=== PATIENT | female | born 1970 | race Caucasian/White ===

== ENCOUNTER 2018-02-12 23:02 | Emergency (ER) | payer BC ==
[~2018-02-12] VITALS: Ht 162.6 cm; Wt 89.8 kg
[~2018-02-12 23:02] MED LIST: ALBUTEROL2.5 MG/0.1 INH; BENADRYL25 MG PO; BREO ELLIPTA 11 EACH IH; HYDROCODONE-AP1 EAC6 PO; MUCINEX COLD-F177 ML PO; ONDANSETRON HCL4 M2 PO; ZYRTEC10 M5 PO
[2018-02-12 23:06] VITALS: BP 128/76
[2018-02-12] MEDS ORDERED: TRIAMCINOLONE A80 G2 TOP (23:18)
[2018-02-12] MEDS ORDERED: DELTASONE20 MG PO (23:18)
== END 2018-02-12 23:32 | disposition home or self-care (01) ==
LOC: M.ERS 23:02
DX: L53.9 Erythematous condition, unspecified (principal); T78.40XA Allergy, unspecified, initial encounter; G89.29 Other chronic pain; M54.9 Dorsalgia, unspecified; Z88.0 Allergy status to penicillin; Z88.1 Allergy status to other antibiotic agents; X58.XXXA Exposure to other specified factors, initial encounter

== ENCOUNTER 2018-04-26 15:19 | Emergency (ER) | payer OTHER, BC ==
[~2018-04-26] VITALS: Ht 165.1 cm; Wt 72.6 kg
[~2018-04-26 15:19] MED LIST changes: +DELTASONE20 MG PO; +TRIAMCINOLONE A80 G2 TOP
[2018-04-26 15:34] LABS: URINE BILIRUBIN NEGATIVE (Negative); URINE BLOOD NEGATIVE (Negative); URINE GLUCOSE-RANDOM TRACE (Negative); URINE KETONES NEGATIVE (Negative); URINE LEUKOCYTES NEGATIVE (Negative); URINE NITRITE POSITIVE (Negative); URINE PROTEIN TRACE (Negative)
[2018-04-26 15:35] LABS: URINE CLARITY HAZY; URINE COLOR DARK YELLOW
[2018-04-26] MEDS ORDERED: FLONASE 0.05%50 MCG NASAL (15:35)
[2018-04-26 15:40] LABS: SQUAMOUS 0-3 Few /LPF (0-3)
[2018-04-26 15:41] LABS: BACTERIA None Seen /HPF (None Seen); CASTS None Seen /LPF (None Seen); CRYSTALS None Seen /LPF (None Seen); URINE RBC None Seen /HPF (0-2); URINE WBC 0-5 Rare /HPF (0-5)
[2018-04-26 16:16] LABS: ABSOLUTE EOSINOPHILS 0.1 thou/uL (0.0-0.7); ABSOLUTE LYMPHOCYTES 2.6 thou/uL (0.8-5.3); ABSOLUTE MONOCYTES 0.6 thou/uL (0.0-1.2); ABSOLUTE NEUTROPHILS 3.7 thou/uL (1.6-8.1); BASOPHILS 0.6 %; EOSINOPHILS 1.2 %; HEMOGLOBIN 13.7 gm/dL (12.0-15.0); LYMPHOCYTES 37.3 %; MCH 29.9 pg (26.0-34.0); MCHC 34.2 g/dL (28.0-37.0); MCV 87.5 fL (80.0-100.0); MONOCYTES 8.5 %; MPV 9.3 fl. (7.2-11.1); NUCLEATED RBCS 0 /100WBC; PLATELET COUNT* 228 thou/uL (150-400); POLYS 52.4 %; RBC 4.57 mil/uL (4.20-5.00)
[2018-04-26 16:21] LABS: CALCIUM 8.5 mg/dL (8.5-10.1); CREATININE 0.7 mg/dL (0.6-1.3); POTASSIUM 3.9 mmol/L (3.5-5.1)
[2018-04-26 16:25] LABS: ALBUMIN 3.6 g/dL (3.4-5.0); TOTAL BILIRUBIN 0.5 mg/dL (<0.1-1.0); TOTAL PROTEIN 7.4 g/dL (6.4-8.2)
[2018-04-26] MEDS ORDERED: ONDANSETRON HCL4 M2 PO (16:59)
[2018-04-26] MEDS ORDERED: CARAFATE1 GM/10 ML PO (16:59)
[2018-04-26] MEDS ORDERED: CIPRO500 MG PO (16:59)
[2018-04-26] MEDS ORDERED: PROTONIX40 M1 PO (16:59)
[2018-04-26 17:14] VITALS: BP 123/74
== END 2018-04-26 17:15 | disposition home or self-care (01) ==
LOC: M.ERS 15:19
PROVIDERS: Nurse Practitioner Family
DX: N39.0 Urinary tract infection, site not specified (principal); R10.13 Epigastric pain; G89.29 Other chronic pain; M54.9 Dorsalgia, unspecified; Z88.0 Allergy status to penicillin; Z88.1 Allergy status to other antibiotic agents

== ENCOUNTER 2019-01-29 00:22 | Emergency (ER) | payer OTHER ==
[~2019-01-29] VITALS: Ht 165.1 cm; Wt 93.0 kg
[~2019-01-29 00:22] MED LIST changes: +CARAFATE1 GM/10 ML PO; +CIPRO500 MG PO; +FLONASE 0.05%50 MCG NASAL; +PROTONIX40 M1 PO
[2019-01-29] MEDS ORDERED: MEDROL DOSPAK21 TA1 PO (00:46)
[2019-01-29] MEDS ORDERED: FLEXERIL PO (00:46)
[2019-01-29] MEDS ORDERED: ULTRAM 50MG TAB50 MG PO (00:46)
[2019-01-29] MEDS ORDERED: CLOBETASOL PROP15 G1 TOP (00:47)
[2019-01-29] MEDS ORDERED: NIZORAL120 ML TOP (00:47)
[2019-01-29] MEDS ORDERED: PROAIR RESPICL90 MCG INH (00:48)
[2019-01-29] MEDS ORDERED: FLONASE 0.05%50 MCG NASAL (00:48)
[2019-01-29 01:32] LABS: ACETEST (KETONE CONFIRMATORY) Negative (Negative); ICTOTEST (BILI CONFIRMATORY) Negative (Negative); URINE CLARITY CLEAR; URINE COLOR YELLOW; URINE PROTEIN NEGATIVE (Negative); URINE REDUCING SUBSTANCE NEGATIVE (Negative)
[2019-01-29 01:33] LABS: URINE LEUKOCYTES-REFLEX TRACE (Negative); URINE NITRITE-REFLEX NEGATIVE (Negative); URINE UROBILINOGEN 0.2 E.U./dl (0.2-1.0)
[2019-01-29] MEDS ORDERED: NORCO 5-325 TA1 EAC1 PO (01:34)
[2019-01-29] MEDS ORDERED: KEFLEX500 M1 PO (01:34)
[2019-01-29 01:46] LABS: URINE BILIRUBIN NEGATIVE (Negative); URINE BLOOD NEGATIVE (Negative); URINE GLUCOSE-RANDOM NEGATIVE (Negative); URINE KETONES NEGATIVE (Negative)
[2019-01-29 01:47] LABS: CASTS None Seen /LPF (None Seen); CRYSTALS None Seen /LPF (None Seen); MUCUS 0-3 Light strn/LPF (None Seen); SQUAMOUS 0-3 Few /LPF (0-3); URINE RBC None Seen /HPF (0-2); URINE WBC-REFLEX 6-15 Few /HPF (0-5)
[2019-01-29 01:57] VITALS: BP 153/93
[2019-02-02] MEDS ORDERED: KEFLEX500 M1 PO (22:41)
== END 2019-01-29 01:57 | disposition home or self-care (01) ==
LOC: M.ERS 00:22
PROVIDERS: Emergency Medicine Emergency Medical Services
DX: N39.0 Urinary tract infection, site not specified (principal); M54.31 Sciatica, right side; R20.2 Paresthesia of skin; G89.29 Other chronic pain; Z88.0 Allergy status to penicillin; Z88.1 Allergy status to other antibiotic agents

== ENCOUNTER → 2021-03-05 | Outpatient (CLI) | payer OTHER ==
[~2021-03-05] MED LIST changes: +CIPRO500 M1 PO; +CLOBETASOL PROP15 G1 TOP; +FLAGYL500 M1 PO; +FLEXERIL PO; +KEFLEX500 M1 PO; +MEDROL DOSPAK21 TA1 PO; +NIZORAL120 ML TOP; +NORCO 5-325 TA1 EAC1 PO; +NYSTATIN100000 UNI SW&SWALLOW; +PROAIR RESPICL90 MCG INH; +ULTRAM 50MG TAB50 MG PO; +WIXELA 250-501 EACH
== END ==
LOC: M.LAB 15:39
PROVIDERS: ATTEND Internal Medicine Gastroenterology
DX: Z01.812 Encounter for preprocedural laboratory examination (principal); Z20.822 Contact with and (suspected) exposure to COVID-19

== ENCOUNTER → 2021-03-12 | Outpatient (CLI) | payer OTHER ==
[2021-03-12 14:14] LABS: ABSOLUTE BASOPHILS 0.1 thou/uL (0.0-0.2); ABSOLUTE LYMPHOCYTES 2.1 thou/uL (0.8-5.3); ABSOLUTE MONOCYTES 0.4 thou/uL (0.0-1.2); ABSOLUTE NEUTROPHILS 6.8 thou/uL (1.6-8.1); BASOPHILS 0.5 %; EOSINOPHILS 0.3 %; HEMATOCRIT 42.1 % (37.0-47.0); HEMOGLOBIN 13.9 gm/dL (12.0-15.0); LYMPHOCYTES 22.2 %; MCH 28.8 pg (26.0-34.0); MCV 87.2 fL (80.0-100.0); MONOCYTES 4.6 %; MPV 8.3 fl. (7.2-11.1); NUCLEATED RBCS 0 /100WBC; PLATELET COUNT* 268 thou/uL (150-400); POLYS 72.4 %; RBC 4.83 mil/uL (4.20-5.00); RDW-CV 13.9 % (10.5-14.5); WBC 9.3 thou/uL (4.0-11.0)
[2021-03-12 14:26] LABS: ALBUMIN 3.9 g/dL (3.4-5.0); CALCIUM 9.4 mg/dL (8.5-10.1); CREATININE 0.9 mg/dL (0.6-1.3); POTASSIUM 4.1 mmol/L (3.5-5.1); TOTAL BILIRUBIN 0.4 mg/dL (<0.1-1.0); TOTAL PROTEIN 7.8 g/dL (6.4-8.2)
[2021-03-12 15:34] LABS: ESR (SEDRATE) 25 mm/hr (0-20)
== END ==
LOC: M.LAB 13:57
PROVIDERS: ATTEND Internal Medicine Gastroenterology
DX: R14.0 Abdominal distension (gaseous) (principal); R10.9 Unspecified abdominal pain

== ENCOUNTER 2021-04-05 10:37 | Emergency (ER) | payer OTHER ==
[~2021-04-05] VITALS: Ht 165.1 cm; Wt 88.0 kg
[2021-04-05 11:06] LABS: URINE BILIRUBIN NEGATIVE (Negative); URINE BLOOD 2+ (Negative); URINE CLARITY CLEAR; URINE COLOR YELLOW; URINE GLUCOSE-RANDOM NEGATIVE (Negative); URINE KETONES 1+ (Negative); URINE LEUKOCYTES-REFLEX 1+ (Negative); URINE NITRITE-REFLEX NEGATIVE (Negative); URINE PROTEIN NEGATIVE (Negative); URINE SPECIFIC GRAVITY 1.015 (1.005-1.030); URINE UROBILINOGEN 0.2 E.U./dl (0.2-1.0)
[2021-04-05 11:14] LABS: ABSOLUTE BASOPHILS 0.1 thou/uL (0.0-0.2); ABSOLUTE EOSINOPHILS 0.1 thou/uL (0.0-0.7); ABSOLUTE LYMPHOCYTES 2.3 thou/uL (0.8-5.3); ABSOLUTE MONOCYTES 0.5 thou/uL (0.0-1.2); ABSOLUTE NEUTROPHILS 2.9 thou/uL (1.6-8.1); BASOPHILS 0.9 %; EOSINOPHILS 1.2 %; HEMATOCRIT 40.7 % (37.0-47.0); HEMOGLOBIN 13.7 gm/dL (12.0-15.0); MCH 29.2 pg (26.0-34.0); MCHC 33.8 g/dL (28.0-37.0); MCV 86.5 fL (80.0-100.0); MONOCYTES 8.9 %; MPV 8.2 fl. (7.2-11.1); NUCLEATED RBCS 0 /100WBC; PLATELET COUNT* 262 thou/uL (150-400); RDW-CV 13.4 % (10.5-14.5); WBC 5.9 thou/uL (4.0-11.0)
[2021-04-05 11:24] LABS: BACTERIA-REFLEX 1-9 Few /HPF (None Seen); CASTS None Seen /LPF (None Seen); CRYSTALS None Seen /LPF (None Seen); MUCUS 0-3 Light strn/LPF (None Seen); SQUAMOUS 0-3 Few /LPF (0-3); URINE RBC 3-10 Few /HPF (0-2); URINE WBC-REFLEX 0-5 Rare /HPF (0-5)
[2021-04-05 11:31] LABS: CALCIUM 9.7 mg/dL (8.5-10.1); CREATININE 0.8 mg/dL (0.6-1.3); POTASSIUM 4.4 mmol/L (3.5-5.1)
[2021-04-05 11:36] LABS: ALBUMIN 3.7 g/dL (3.4-5.0); TOTAL BILIRUBIN 0.8 mg/dL (<0.1-1.0); TOTAL PROTEIN 7.9 g/dL (6.4-8.2)
[2021-04-05] MEDS ORDERED: BACTRIM DS TAB1 EACH PO (12:51)
[2021-04-05] MEDS ORDERED: FLAGYL500 M1 PO (12:51)
[2021-04-05] MEDS ORDERED: ZOFRAN ODT4 MG PO (12:51)
[2021-04-05 13:08] VITALS: BP 145/95
== END 2021-04-05 13:08 | disposition home or self-care (01) ==
LOC: M.ERS 10:37
PROVIDERS: Nurse Practitioner Family
DX: K57.32 Diverticulitis of large intestine without perforation or abscess without bleeding (principal); J45.909 Unspecified asthma, uncomplicated; Z79.899 Other long term (current) drug therapy; Z88.1 Allergy status to other antibiotic agents; Z88.8 Allergy status to other drugs, medicaments and biological substances; Z88.0 Allergy status to penicillin

== ENCOUNTER → 2021-04-24 | Outpatient (CLI) | payer OTHER ==
[~2021-04-24] MED LIST changes: +BACTRIM DS TAB1 EACH PO; +ZOFRAN ODT4 MG PO
== END ==
LOC: M.ULTRA 10:30
PROVIDERS: ATTEND Nurse Practitioner Family
DX: E04.9 Nontoxic goiter, unspecified (principal)

== ENCOUNTER 2021-08-07 12:37 | Inpatient (IN) | payer OTHER ==
[~2021-08-07] VITALS: Ht 165.1 cm; Wt 75.7 kg
--- NOTE | ~2021-08-07 | H ---
[address] [address] HISTORY AND PHYSICAL Name: JACOB CAPPS Room: [address] M.R.#: [id number] Admission: 08/07/21 Attend Phys: Liv Lugo DO Discharge: 08/10/21 Date of : 72 Report #: [id number] THIS REPORT FOR: cc: Madelyn Trivedi Samantha RNP [facility],Medical Records Staff ~ For History and Physical please refer to the consultation note in the patient's medical record. By: [id number] Records Staff [facility] /[place]ARCIE
[2021-08-07 12:41] VITALS: BP 138/105
[2021-08-07] MEDS ORDERED: NEURONTIN100 MG PO (12:48)
[2021-08-07] MEDS ORDERED: IMODIUM A-D2 MG PO (12:49)
--- NOTE | 2021-08-07 16:27 | EKG ---
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 08/07/21 1627 1528 1528 Raul Ahmadi MD, [facility] /EPI
[2021-08-07 17:03] LABS: ABSOLUTE LYMPHOCYTES 1.4 thou/uL (0.8-5.3); ABSOLUTE MONOCYTES 0.5 thou/uL (0.0-1.2); ABSOLUTE NEUTROPHILS 8.7 thou/uL (1.6-8.1); BASOPHILS 0.2 %; EOSINOPHILS 0.2 %; HEMATOCRIT 40.6 % (37.0-47.0); HEMOGLOBIN 13.8 gm/dL (12.0-15.0); MCH 29.3 pg (26.0-34.0); MCHC 33.9 g/dL (28.0-37.0); MCV 86.5 fL (80.0-100.0); MONOCYTES 4.8 %; MPV 7.2 fl. (7.2-11.1); NUCLEATED RBCS 0 /100WBC; PLATELET COUNT* 247 thou/uL (150-400); POLYS 81.8 %; RBC 4.69 mil/uL (4.20-5.00); RDW-CV 14.1 % (10.5-14.5); WBC 10.7 thou/uL (4.0-11.0)
[2021-08-07 17:17] LABS: ALBUMIN 3.4 g/dL (3.4-5.0); CALCIUM 9.5 mg/dL (8.5-10.1); CREATININE 0.9 mg/dL (0.6-1.3); POTASSIUM 4.3 mmol/L (3.5-5.1); TOTAL BILIRUBIN 0.7 mg/dL (<0.1-1.0); TOTAL PROTEIN 7.9 g/dL (6.4-8.2)
[2021-08-07 18:00] VITALS: BP 117/76
[2021-08-07 23:47] VITALS: BP 115/76
[2021-08-07] MEDS ORDERED: PEPCID20 MG PO (23:54)
[2021-08-07] MEDS ORDERED: TYLENOL325 M1 PO (23:55)
[2021-08-07] MEDS ORDERED: IBUPROFEN 400400 M1 PO (23:55)
[2021-08-08] VITALS (14 sets, daily range): BP systolic 98–127; BP diastolic 53–84
[2021-08-08 03:22] LABS: ABSOLUTE EOSINOPHILS 0.1 thou/uL (0.0-0.7); ABSOLUTE LYMPHOCYTES 1.9 thou/uL (0.8-5.3); ABSOLUTE MONOCYTES 0.6 thou/uL (0.0-1.2); ABSOLUTE NEUTROPHILS 5.1 thou/uL (1.6-8.1); BASOPHILS 0.3 %; EOSINOPHILS 0.8 %; HEMATOCRIT 37.3 % (37.0-47.0); HEMOGLOBIN 12.5 gm/dL (12.0-15.0); LYMPHOCYTES 25.3 %; MCH 29.1 pg (26.0-34.0); MCHC 33.6 g/dL (28.0-37.0); MCV 86.6 fL (80.0-100.0); MONOCYTES 8.1 %; MPV 7.7 fl. (7.2-11.1); NUCLEATED RBCS 0 /100WBC; PLATELET COUNT* 247 thou/uL (150-400); POLYS 65.5 %; RDW-CV 14.1 % (10.5-14.5); WBC 7.7 thou/uL (4.0-11.0)
[2021-08-08 03:39] LABS: MAGNESIUM 1.5 mg/dL (1.8-2.4); PHOSPHORUS* 3.9 mg/dL (2.5-4.9)
[2021-08-08 04:23] LABS: ALBUMIN 3.1 g/dL (3.4-5.0); CREATININE 0.9 mg/dL (0.6-1.3); POTASSIUM 4.2 mmol/L (3.5-5.1); TOTAL BILIRUBIN 0.8 mg/dL (<0.1-1.0); TOTAL PROTEIN 6.5 g/dL (6.4-8.2)
--- NOTE | 2021-08-08 16:30 | NUR ---
PATIENT ADMITTED TO [facility] FROM ER, VIA BED ACCOMPANIED BY ER NURSE, DUE TO ABDOMINAL PAIN, N/V. OSTOMY IN PLACE TO LEFT RIGHT LOWER ABDOMEN WITHOUT COMPLICATIONS. PATIENT DOES ALL CARES FOR OSTOMY. IV TO LEFT AC INFUSING NORMAL SALINE AT 100MLS/HR WITHOUT COMPLICATIONS. ORIENTED TO ROOM AND FLOOR. ALL QUESTIONS AND CONCERNS ADDRESSED.
--- NOTE | 2021-08-08 19:30 | NUR ---
IV FLUIDS INFUSING PER ORDER. PATIENT ANXIOUS. PATIENT CONCERNED COLOSTOMY IS LEAKING AND PICKS AT THE SEAL AROUND THE STOMA. CURRENTLY SEAL AROUND THE STOMA IS DRY/INTACT. PATIENT HAVING TO MAKE FREQUENT TRIPS TO THE BATHROOM TO EMPTY COLOSTOMY DUE CONSTANT LIQUID YELLOWISH BROWN LIQUID STOOL.
[2021-08-09 04:39] LABS: ABSOLUTE EOSINOPHILS 0.1 thou/uL (0.0-0.7); ABSOLUTE LYMPHOCYTES 2.2 thou/uL (0.8-5.3); ABSOLUTE MONOCYTES 0.7 thou/uL (0.0-1.2); ABSOLUTE NEUTROPHILS 3.2 thou/uL (1.6-8.1); BASOPHILS 0.6 %; EOSINOPHILS 2.1 %; HEMATOCRIT 35.7 % (37.0-47.0); HEMOGLOBIN 11.9 gm/dL (12.0-15.0); LYMPHOCYTES 35.2 %; MCH 29.4 pg (26.0-34.0); MCHC 33.4 g/dL (28.0-37.0); MCV 88.1 fL (80.0-100.0); MONOCYTES 11.3 %; MPV 7.5 fl. (7.2-11.1); NUCLEATED RBCS 0 /100WBC; PLATELET COUNT* 226 thou/uL (150-400); POLYS 50.8 %; RBC 4.05 mil/uL (4.20-5.00); WBC 6.3 thou/uL (4.0-11.0)
[2021-08-09 05:24] LABS: CALCIUM 9.2 mg/dL (8.5-10.1); CREATININE 0.7 mg/dL (0.6-1.3); POTASSIUM 3.6 mmol/L (3.5-5.1); TOTAL BILIRUBIN 0.5 mg/dL (<0.1-1.0); TOTAL PROTEIN 6.8 g/dL (6.4-8.2)
--- NOTE | 2021-08-09 05:30 | NUR ---
OUTPUT IN COLOSTOMY SLOWED DOWN SOME. PATIENT ON SCHEDULED IMMODIUM. PATIENT WAS ABLE TO REST SOME ON/OFF. NO FURTHER COMPLAINT OF NAUSEA. HOURLY ROUNDING IN PROGRESS.
[2021-08-09 07:57] VITALS: BP 112/58
[2021-08-09 12:07] LABS: ABSOLUTE EOSINOPHILS 0.1 thou/uL (0.0-0.7); ABSOLUTE LYMPHOCYTES 2.2 thou/uL (0.8-5.3); ABSOLUTE MONOCYTES 0.7 thou/uL (0.0-1.2); BASOPHILS 0.5 %; EOSINOPHILS 1.1 %; HEMATOCRIT 38.8 % (37.0-47.0); HEMOGLOBIN 12.9 gm/dL (12.0-15.0); LYMPHOCYTES 31.7 %; MCH 28.9 pg (26.0-34.0); MCHC 33.2 g/dL (28.0-37.0); MCV 86.9 fL (80.0-100.0); MONOCYTES 9.8 %; MPV 7.5 fl. (7.2-11.1); NUCLEATED RBCS 0 /100WBC; PLATELET COUNT* 235 thou/uL (150-400); POLYS 56.9 %; RBC 4.46 mil/uL (4.20-5.00); RDW-CV 14.2 % (10.5-14.5)
[2021-08-09 12:19] LABS: ALBUMIN 3.1 g/dL (3.4-5.0); CALCIUM 9.1 mg/dL (8.5-10.1); CREATININE 0.8 mg/dL (0.6-1.3); TOTAL BILIRUBIN 0.4 mg/dL (<0.1-1.0); TOTAL PROTEIN 7.3 g/dL (6.4-8.2)
[2021-08-09 15:31] VITALS: BP 109/67
--- NOTE | 2021-08-09 17:05 | NUR ---
PT IS UP AT [facility]. PT IS ON RM . PT HAS IV IN RT HAND. PT HAS ILLEOSTOMY.PT HAD PAIN THIS AM , RESOLVED WITH TYN. PT HAD NAUSEA RESOLVED WITH ZOFRAN. PT HAD CT THIS SHIFT . PT IS A&O X4 . PT IS SITTING IN BED WATCHING TV. CALL LIGHT IN REACH.
[2021-08-09 21:00] VITALS: BP 126/77
[2021-08-10] VITALS: BP 107/69
--- NOTE | 2021-08-10 05:11 | NUR ---
ASSUMED CARES AT 1920. ALERT AND ORIENTED. PLEASANT. UP AD ASHLEY. C/O SLIGHT NAUSEA AND ABD DISCOMFORT. SCHEDULED TYLENOL GIVEN. ZOFRAN GIVEN. SALINE LOCK RIGHT HAND. PT EMPTIES OWN ILEOSTOMY BAG. PT REPORTS STOOLS ARE LESS WATERY AND NOT YELLOW. NO ISSUES OVERNIGHT.
[2021-08-10 05:45] LABS: HEMOGLOBIN 12.9 gm/dL (12.0-15.0); MCH 29.4 pg (26.0-34.0); MCV 84.2 fL (80.0-100.0); MPV 7.6 fl. (7.2-11.1); RBC 4.4 mil/uL (4.20-5.00); RDW-CV 14.2 % (10.5-14.5); WBC 8.2 thou/uL (4.0-11.0)
[2021-08-10 07:00] LABS: ALBUMIN 3.1 g/dL (3.4-5.0); CALCIUM 9.5 mg/dL (8.5-10.1); CREATININE 0.8 mg/dL (0.6-1.3); POTASSIUM 3.6 mmol/L (3.5-5.1); TOTAL BILIRUBIN 0.5 mg/dL (<0.1-1.0); TOTAL PROTEIN 7.2 g/dL (6.4-8.2)
[2021-08-10 08:30] VITALS: BP 106/69
--- NOTE | 2021-08-10 10:35 | NUR ---
CM reviewing progress notes this am, Ok to discharge in progress note, no DC orders written, notified ARIELA Hernandez of need for orders. Hospitalist were not consulted for this admission.
[2021-08-10] MEDS ORDERED: ROXICODONE5 MG PO (11:06)
[2021-08-10] MEDS ORDERED: ZOFRAN ODT4 MG PO (11:06)
[2021-08-10] MEDS ORDERED: IMODIUM A-D2 MG PO (11:06)
[2021-08-10 15:24] VITALS: BP 106/69
--- NOTE | 2021-08-10 16:47 | NUR ---
PLAN FOR THE PT TO D/C TODAY PENDING SURGERY RECOMMENDATIONS AND D/C ORDERS. NO CM D/C PLANNING NEEDS ANTICIPATED. CM WILL REMAIN AVAILABLE TO ASSIST AND FOLLOW NEEDED.
--- NOTE | 2021-08-10 18:11 | NUR ---
PATIENT VERBALIZED UNDERSTANDING OF DISCHARGE INSTRUCTIONS. IV D/C WITHOUT DIFFICULTY. USING PO TYLENOL FOR PAIN. ZOFRAN USED FOR NAUSEA. PATIENT TAKING OF ILEOSTOMY CARES WITHOUT DIFFICULTY. HAD 600ML OUT OF LIQUID BROWN STOOLS. LEFT VIA W/C WITH FAMILY IN FAMILY CAR.
== END 2021-08-10 18:00 | disposition home or self-care (01) | DRG 394 ==
LOC: M.ERS 12:37 → M.TBA-ER 17:42 → M.2W 17:42
PROVIDERS: Family Medicine; ADMIT Surgery; ATTEND Surgery
PROC: 0WJF3ZZ Inspection of Abdominal Wall, Percutaneous Approach (ICD-10-PCS; principal; 2021-08-07)
DX: K94.19 Other complications of enterostomy (principal); E87.1 Hypo-osmolality and hyponatremia; R11.2 Nausea with vomiting, unspecified; G89.29 Other chronic pain; Z20.822 Contact with and (suspected) exposure to COVID-19; M54.9 Dorsalgia, unspecified; Z88.1 Allergy status to other antibiotic agents; Z88.0 Allergy status to penicillin; Z88.2 Allergy status to sulfonamides; Z88.8 Allergy status to other drugs, medicaments and biological substances; Z90.49 Acquired absence of other specified parts of digestive tract